=== PATIENT | male | born 1955 | race Caucasian/White ===

== ENCOUNTER 2024-11-21 13:15 | Outpatient (RCR) | payer MEDICARE, SELFPAY | END 2024-11-21 16:33 | disposition home or self-care (01) | LOC: HO.WCC 13:15 | PROVIDERS: PCP Family Medicine; Visit Provider Colon & Rectal Surgery | DX: E11.622 Type 2 diabetes mellitus with other skin ulcer (principal); L97.821 Non-pressure chronic ulcer of other part of left lower leg limited to breakdown of skin; L97.222 Non-pressure chronic ulcer of left calf with fat layer exposed; L97.211 Non-pressure chronic ulcer of right calf limited to breakdown of skin; I87.313 Chronic venous hypertension (idiopathic) with ulcer of bilateral lower extremity; I87.012 Postthrombotic syndrome with ulcer of left lower extremity; E11.51 Type 2 diabetes mellitus with diabetic peripheral angiopathy without gangrene; I10 Essential (primary) hypertension; I48.20 Chronic atrial fibrillation, unspecified; Z79.01 Long term (current) use of anticoagulants; Z86.718 Personal history of other venous thrombosis and embolism; Z86.19 Personal history of other infectious and parasitic diseases | CPT/HCPCS: 11042; 97597; 99204; 99212; 99213 ==